=== PATIENT | male | born 1995 | race Native Hawaiian/Other Pacific Islander ===

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

== ENCOUNTER 2017-06-28 10:27 | Emergency (ER) | payer OTHER ==
[~2017-06-28] VITALS: Ht 170.2 cm; Wt 64.0 kg
== END 2017-06-28 11:25 | disposition home or self-care (01) ==
LOC: ED 10:27
DX: K08.89 Other specified disorders of teeth and supporting structures (principal); Z72.0 Tobacco use
CPT/HCPCS: 99281

== ENCOUNTER 2018-12-13 19:16 | Emergency (ER) | payer OTHER ==
[~2018-12-13] VITALS: Ht 172.7 cm; Wt 54.4 kg
[2018-12-13 19:25] VITALS: BP 119/76; TEMP 98.7
== END 2018-12-13 22:17 | disposition home or self-care (01) ==
LOC: ED 19:16
DX: S46.911A Strain of unspecified muscle, fascia and tendon at shoulder and upper arm level, right arm, initial encounter (principal); X58.XXXA Exposure to other specified factors, initial encounter
CPT/HCPCS: 99282; 99283